=== PATIENT | female | born 1965 | race Caucasian/White ===

== ENCOUNTER → 2024-03-10 09:41 | Outpatient (REF) | payer OTHER, SELFPAY ==
[2024-03-10 11:09] LABS: Rubella Positive
[2024-03-10 12:58] LABS: Hepatitis B Surface Antibody Indeterminate
[2024-03-12 11:55] LABS: Quantiferon Plus TB1 minus NIL 0.01 IU/mL (<=0.34); Quantiferon TB Gold Plus Negative (Negative)
== END ==
LOC: OHS 09:41
PROVIDERS: ATTENDING PHYSICIAN Nurse Practitioner
DX: Z23 Encounter for immunization (principal)
CPT/HCPCS: 36415; 86480; 86706; 86735; 86762; 86765; 86787

== ENCOUNTER → 2024-04-05 08:28 | Outpatient (REF) | payer OTHER, SELFPAY | LOC: RAD 08:28 | PROVIDERS: ATTENDING PHYSICIAN Nurse Practitioner Family | DX: M25.572 Pain in left ankle and joints of left foot (principal) | CPT/HCPCS: 73610 ==